=== PATIENT | female | born 1955 | race Caucasian/White ===

== ENCOUNTER 2017-01-20 20:47 | Emergency (ER) | payer MEDICARE ==
[~2017-01-20 20:47] MED LIST: ALPRAZOLAM PO; AUGMENTIN875 MG PO; BACLOFEN10 MG PO; BYSTOLIC10 MG PO; CIPRO PO; CIPRO XR 500 M500 MG PO; COLACE PO; CORTISPORI10 ML OTIC AU; CORTISPORIN-TC10 M1 OT; DIAZEPAM2 MG PO; DOCU SOFT100 M1 PO; ENDOCET 10-3251 TAB PO; HYDROCODON-ACE1 EAC5 PO; IBUPROFEN800 MG PO; K-DUR20 ME1 PO; KEPPRA500 M2 PO; LIORESAL10 MG PO; LOMOTIL TABLET1 TAB PO; LYRICA75 MG PO; MACRODANTIN PO; OXYCODON HCL-AP1 TA2 PO; PHENERGAN25 M1 PO; POTASSIUM CHLO20 ME1 PO; SERTRALINE HCL100 MG PO; VOLTAREN75 MG PO; XANAX1 MG PO; ZOCOR20 MG PO; ZOFRAN PO; ZOLOFT PO; ZOLOFT100 MG PO
[2017-03-18] MEDS ORDERED: KEPPRA1000 MG PO (10:33)
[2017-03-18] MEDS ORDERED: IMITREX PO (10:33)
[2017-03-18] MEDS ORDERED: ZOLOFT100 MG PO (10:33)
[2017-03-18] MEDS ORDERED: LOMOTIL WHITE2.5 M1 PO (10:34)
[2017-03-18] MEDS ORDERED: KLOR-CON PO (10:35)
[2017-03-18] MEDS ORDERED: AMLODIPINE BESYL5 MG PO (10:36)
[2017-03-18] MEDS ORDERED: ESTRADIOL0.5 MG PO (10:36)
[2017-03-18] MEDS ORDERED: BENADRYL25 M3 PO (10:37)
[2017-03-18] MEDS ORDERED: HYDROCODON-ACE1 EAC9 PO (10:37)
[2017-03-18] MEDS ORDERED: ASPIRIN81 M2 PO (10:37)
[2017-03-18] MEDS ORDERED: ADVIL200 M1 PO (10:38)
[2017-03-18] MEDS ORDERED: EXCEDRIN MIGRA1 EACH PO (10:38)
[2017-04-01] MEDS ORDERED: TOPAMAX PO (09:54)
== END 2017-01-20 21:00 | disposition left against medical advice (07) ==
LOC: CED 20:47
DX: Z53.21 Procedure and treatment not carried out due to patient leaving prior to being seen by health care provider (principal)

== ENCOUNTER → 2017-03-18 | Day surgery (SDC) | payer MEDICARE ==
[~2017-03-18] MED LIST changes: +ADVIL200 M1 PO; +AMLODIPINE BESYL5 MG PO; +ASPIRIN81 M2 PO; +BENADRYL25 M3 PO; +ESTRADIOL0.5 MG PO; +EXCEDRIN MIGRA1 EACH PO; +HYDROCODON-ACE1 EAC9 PO; +IMITREX PO; +KEPPRA1000 MG PO; +KLOR-CON PO; +LOMOTIL WHITE2.5 M1 PO; +TOPAMAX PO
--- NOTE | ~2017-03-18 | OR ---
Unit #: [id number] #: [id number] Patient: KATIE DURBIN [id number] [address] [address] [id number] MR#: [id number] NAME: KATIE DURBIN ROOM: Date of Procedure: 03/18/2017 Admission Date: 03/18/2017 Surgeon: Ernie Morin M.D. : 1955 Attending Physician: Ernie Morin M.D. Primary Care Physician: Chago Greer Jr., M.D. OPERATIVE REPORT PREOPERATIVE DIAGNOSES Back pain and thoracic compression fracture. POSTOPERATIVE DIAGNOSES Back pain and thoracic compression fracture. PROCEDURE PERFORMED Thoracic epidural steroid injection. INDICATIONS FOR PROCEDURE The patient is a 62-year-old female, who suffered with T5 compression fracture. She is not a kyphoplasty candidate. She continues to have pain at that level. She failed to settle with conservative measures alone. Plan is for trial of epidural steroid at this level. DESCRIPTION OF PROCEDURE The patient was placed in a seated position. Standard monitors were applied. 2 mg of Versed were given for sedation and anxiolysis, which were adequate. Vital signs remained stable. Sterile prep and drape then of the thoracic area was performed. The skin then at the T5 level was localized with 1% lidocaine. An 18-gauge Hustead needle was then advanced via loss of resistance technique and fluoroscopic guidance into the epidural space via right paramedian approach. After confirming proper positioning with fluoroscopy and radiographic contrast, 80 mg Depo-Medrol and 4 mL of 0.125% bupivacaine were deposited. The patient tolerated the procedure otherwise well and was discharged to the recovery room in stable condition. Dictated by... Eric Montes/zaida TD: 03/18/2017 23:23 JOB #: [id number] Unit #: [id number] #: [id number] Patient: KATIE DURBIN OPERATIVE REPORT Page 1 of 1 X Ernie Morin MD X PROCEDURE OPERATIVE NOTE
== END | disposition home or self-care (01) ==
LOC: CCSC 08:59
DX: S22.059A Unspecified fracture of T5-T6 vertebra, initial encounter for closed fracture (principal); I10 Essential (primary) hypertension; F32.9 Major depressive disorder, single episode, unspecified; F41.9 Anxiety disorder, unspecified; G43.909 Migraine, unspecified, not intractable, without status migrainosus; Z88.1 Allergy status to other antibiotic agents; Z88.6 Allergy status to analgesic agent; Z88.8 Allergy status to other drugs, medicaments and biological substances; Z79.82 Long term (current) use of aspirin; Z79.899 Other long term (current) drug therapy
CPT/HCPCS: J1040; J2250

== ENCOUNTER → 2017-04-01 | Day surgery (SDC) | payer MEDICARE ==
--- NOTE | ~2017-04-01 | OR ---
Unit #: [id number] #: [id number] Patient: KATIE DURBIN [id number] [address] [place], [place] [address] [id number] MR#: [id number] NAME: KATIE DURBIN ROOM: Date of Procedure: 04/01/2017 Admission Date: 04/01/2017 Surgeon: Ernie Morin M.D. : 1955 Attending Physician: Ernie Morin M.D. Referring Physician: Ernie Morin M.D. Primary Care Physician: Chago Greer M.D. OPERATIVE REPORT PREOPERATIVE DIAGNOSES Back pain and thoracic compression fracture. POSTOPERATIVE DIAGNOSES Back pain and thoracic compression fracture. PROCEDURE PERFORMED Thoracic epidural steroid injection with intravenous sedation and fluoroscopic guidance. INDICATIONS FOR PROCEDURE The patient is a 62-year-old female with mid back pain following a T5 compression fracture. She is not a kyphoplasty candidate. Plan is for trial of epidural steroids to try and settle this. First injection not helped very much. We are going to proceed with a slightly different entry level buyer. If this does no better, we will hold on any other interventional treatment. DESCRIPTION OF PROCEDURE The patient was placed in a seated position. Standard monitors were applied. 2 mg of Versed were given for sedation and anxiolysis, which were adequate. Vital signs remained stable. Sterile prep and drape then of the thoracic area was performed. The skin at the right of midline at the T5-6 level was localized with 1% lidocaine. An 18-gauge Hustead needle was then advanced via right paramedian approach and loss resistance technique in toward the epidural space. After confirming proper positioning with fluoroscopy and radiographic contrast, a dose of 80 mg of Depo-Medrol and 4 mL of 0.125% bupivacaine were deposited. The patient tolerated the procedure otherwise well and was discharged to the recovery room in stable condition. Dictated by... Eric MontesP/zaida TD: 04/02/2017 06:36 JOB #: [id number] Unit #: [id number] #: [id number] Patient: KATIE DURBIN OPERATIVE REPORT Page 1 of 1 X Ernie Morin MD X PROCEDURE OPERATIVE NOTE
== END | disposition home or self-care (01) ==
LOC: CCSC 09:31
DX: S22.059A Unspecified fracture of T5-T6 vertebra, initial encounter for closed fracture (principal); I10 Essential (primary) hypertension; G43.909 Migraine, unspecified, not intractable, without status migrainosus; F41.9 Anxiety disorder, unspecified; F32.9 Major depressive disorder, single episode, unspecified; Z88.1 Allergy status to other antibiotic agents; Z88.6 Allergy status to analgesic agent; Z88.8 Allergy status to other drugs, medicaments and biological substances; Z79.82 Long term (current) use of aspirin; Z79.891 Long term (current) use of opiate analgesic; Z79.899 Other long term (current) drug therapy; X58.XXXA Exposure to other specified factors, initial encounter
CPT/HCPCS: J1040; J2250

== ENCOUNTER 2017-04-27 09:08 | Emergency (ER) | payer MEDICARE ==
[~2017-04-27] VITALS: Ht 162.6 cm; Wt 68.0 kg
== END 2017-04-27 09:38 | disposition home or self-care (01) ==
LOC: CFTX 09:08 → CED 09:08 → CFTX 09:22
DX: K08.89 Other specified disorders of teeth and supporting structures (principal); I10 Essential (primary) hypertension; F32.9 Major depressive disorder, single episode, unspecified; F17.210 Nicotine dependence, cigarettes, uncomplicated; Z88.8 Allergy status to other drugs, medicaments and biological substances
CPT/HCPCS: 99282